=== PATIENT | male | born 1955 | race Caucasian/White ===

== ENCOUNTER → 2020-03-12 11:09 | Outpatient (CLI) | payer OTHER, SELFPAY ==
[2020-03-12 11:44] LABS: COVID19 -Nasal RAPID Negative (Negative)
== END ==
PROVIDERS: Visit Provider Physician Assistant
DX: Z20.822 Contact with and (suspected) exposure to COVID-19 (principal)
CPT/HCPCS: 87635; C9803

== ENCOUNTER → 2020-06-03 13:21 | Outpatient (CLI) | payer MEDICARE, SELFPAY ==
[2020-06-03] MEDS: COVID-19 VACC, Ad26(JANSSEN)/PF 0.5 ML IM (13:27)
== END ==
PROVIDERS: Visit Provider Internal Medicine
DX: Z23 Encounter for immunization (principal)
CPT/HCPCS: 0031A; 91303

== ENCOUNTER → 2020-07-08 10:33 | Outpatient (CLI) | payer OTHER, SELFPAY ==
--- NOTE | 2020-07-08 | DI.RAD.S_ITS ---
PROCEDURE: XR LUMBAR SPINE 2-3V INDICATIONS: Spinal stenosis, lumbar region with neurogenic claudication TECHNIQUE: 3 views of the lumbar spine were acquired. COMPARISON: Outside Facility, RG, XR L-SPINE 4-6V, 07/17/2016, 8:54. FINDINGS: Bones: 5 [id number] vertebrae are present. There is normal bony alignment. No vertebral body compression fractures. No suspicious bony lesions. Note is made of a minimal degree of degenerative disc height reduction along the upper and middle thirds of the lumbosacral spine but at L4-5 there is moderately severe such change and also facet osteoarthritis that is near severe. Anterolisthesis grade 2 is present of L5 on S1, but definite plain film evidence of pars interarticularis defects bilaterally at L4 a is not found. Ligamentous laxity may explain the appearance. Soft tissues: Overlying bowel gas pattern is normal. No suspicious soft tissue calcifications. IMPRESSION: Prominent disc height reduction and facet osteoarthritis at L4-L5 allowing grade 2 anterolisthesis of L4 on L5. Spinal and foraminal stenosis at this level likely is present as a result. There may be spinal and foraminal stenosis also given the degree of degeneration at L5-S1. No compression fracture found. The degree of degeneration at L4-L5 has mildly worsened from the comparison study from June of 2016. Dictated by: Rogerio Fermin M.D. on 07/08/2020 at 10:57 Approved by: Rogerio Fermin M.D. on 07/08/2020 at 11:00
== END ==
PROVIDERS: PCP Family Medicine; Referring Provider Family Medicine; Visit Provider Family Medicine
DX: M48.062 Spinal stenosis, lumbar region with neurogenic claudication (principal); M47.816 Spondylosis without myelopathy or radiculopathy, lumbar region; M43.16 Spondylolisthesis, lumbar region
CPT/HCPCS: 72100

== ENCOUNTER → 2020-10-10 07:44 | Outpatient (CLI) | payer OTHER, SELFPAY ==
[2020-10-10 12:07] LABS: COVID19 -Nasal RAPID Negative (Negative)
== END ==
PROVIDERS: PCP Family Medicine; Visit Provider Physical Medicine & Rehabilitation
DX: Z20.822 Contact with and (suspected) exposure to COVID-19 (principal)
CPT/HCPCS: 87635; C9803

== ENCOUNTER 2020-10-11 08:00 | Outpatient (CLI) | payer OTHER, SELFPAY ==
[2020-10-11] VITALS (8 sets, daily range): BP systolic 130–166; BP diastolic 60–77; PULSE 58–80; RESP 12–20; TEMP 36.6; O2SAT 95–100
--- NOTE | 2020-10-11 08:03 | DI.RAD.S_ITS ---
PROCEDURE: PAIN L INTERLAMINAR/CAUDAL INJ INDICATIONS: SPONDYLOSIS COMPARISON: [facility], CR, XR LUMBAR SPINE 2-3V, 07/08/2020, 10:42. FINDINGS: Fluoroscopic spot filming was performed to verify placement of a spinal needle at the L4-L5 level, as labeled on the films. Appropriate location of the needle tip was confirmed by injection of iodinated contrast. IMPRESSION: Intraprocedural examination within normal limits. Dictated by: Wilmar Gage M.D. on 10/11/2020 at 8:38 Approved by: Wilmar Gage M.D. on 10/11/2020 at 8:38
[2020-10-11] MEDS: SODIUM CHLORIDE 0.9% 250 ML IV (08:50)
[2020-10-11] MEDS: fentaNYL 100 MCG/2 ML INJ 50 MCG IV (09:00)
[2020-10-11] MEDS: MIDAZOLAM 5 MG/5 ML VIAL IV (09:00)
--- NOTE | 2020-10-11 09:01 | PC.NURSE ---
After placement of IV to the RH, pt became diaphoretic with some blurring vision and nauseated. Bolus of 250ml was started and pt was placed in a modified trendelenburg postion. HR was noted in the low 50's and BP was 88/52, sats were 99 on RA. Cool cloth was also applied. WESLEY Keller in procedure room arrived with first pt and then went to notify Dr Foire. Pt BP returned to baseline, 132/88 and it was determined by Dr. Fiore that pt would proceed as planned for procedure. Pt was escorted to procedure room via by Reema Brooks.
[2020-10-11] MEDS: IOPAMIDOL 15 ML VIAL 3 ML INJ (09:02)
[2020-10-11] MEDS: DEXAMETHASONE 10 MG/ML VIAL 20 MG INJ (09:02)
[2020-10-11] MEDS: BETAMETHASONE 30 MG/5 ML MDV 6 MG INJ (09:02)
[2020-10-11] MEDS: BUPIVACAINE 0.25% (PF) VIAL 2 ML INJ (09:02)
--- NOTE | 2020-10-11 09:11 | P.PCN_ITS ---
Date/Time/Diagnoses Date of procedure: 10/11/20 Time of procedure: 09:11 Pre-procedure diagnosis: 1. HNP WITH RADICULAR FEATURES, 2. MULTILEVEL CENTRAL STENOSIS, Post-procedure diagnosis: same Procedure Notes Procedure: 1. FLUOROSCOPICALLY GUIDED CONTRAST CONTROLLED INTERLAMINAR EPIDURAL STEROID INJECTION -L4/5 Indications: [facility] is referred by Dr. Golden for treatment of Bilateral Foraminal Stenosis R>L LE symptoms. Physician: Cristopher Fiore Total Fluoroscopy time (seconds): 7 Total sedation minutes: 8 Complications: none Procedure in detail & Post-procedure care: FINDINGS Multilevel Central Spinal Stenosis with Nerve Root Compression DESCRIPTION OF PROCEDURE Fluoroscopically guided, contrast-controlled L4/5 translaminar epidural steroid injection. Following review of allergy and review of potential side effects and complications, including, but not necessarily limited to, infection, allergic reaction, local tissue breakdown, temporary as well as permanent nerve injury, paralysis, stroke and possible , the patient indicated that the patient understood and agreed to proceed. An informed consent document was signed by the patient, witnessed by a nurse, and placed in the patient's chart. Additionally, other treatment options including modalities, medications, and physical therapy were reviewed with the patient. After review of previous anaesthesic history and IV conscious sedation the patient was deemed safe to proceed with today?s procedure with IV conscious sedation as ASA class II designation. Safety time-out was performed to confirm patient ID, procedure to be performed and site of procedure. IV sedation was accomplished with a combination of 2mg of Versed and 50mcg of Fentanyl was administered by the RN after DO order, titrated to patient comfort during the course of the procedure while the patient remained responsive to all verbal commands In the prone position, following sterile prep and drape of the lumbar region, the L4/5 translaminar space was identified fluoroscopically. The skin was anesthetized via a 25-gauge, 1.5inch needle with 1% lidocaine solution. At this point, a 22-gauge short bevel spinal needle was atraumatically introduced and advanced under fluoroscopic guidance into the region of the L4/5 translaminar space. Depth was confirmed on lateral view. Radiological data, including multiple fluoroscopic views of the lumbar spine, reveal a spinal needle at the L4/5 translaminar space. Lateral views then show placement of the needle in the epidural space. Subsequent views show contrast material flowing superiorly and inferiorly in the epidural space. No vascular or intrathecal uptake is observed. At this point, using loss of resistance technique with saline and air, the epidural space was entered. This was confirmed following negative aspiration with injection of approximately 1.5cc of Isovue 200, showing excellent epidural flow without vascular or intrathecal uptake. At this point, 1cc of 1% lidocaine solution combined with 3cc or 20mg of dexamethasone and 6mg betamethasone was injected without incident. The patient tolerated the procedure well without signs or symptoms of complications prior to transfer to the recovery area continued monitoring without incident. The patient was then transferred to the recovery area where they were observed for an appropriate period of time after the injection. The patient reported a VAS score of 6 prior to the procedure and a post- procedure VAS of 0. POST OP INSTRUCTIONS The patient was provided a Pain Log to continue to record their response to the target-specific procedure prior to follow-up visit with their referring physician. Additionally, specific post-injection care instructions and a contact number to our office were provided if concerns arise regarding possible complications associated with the procedure are suspected.
== END 2020-10-11 09:48 | disposition home or self-care (01) ==
LOC: RAD 08:02
PROVIDERS: PCP Family Medicine; Referring Provider Physical Medicine & Rehabilitation; Visit Provider Physical Medicine & Rehabilitation
DX: M51.16 Intervertebral disc disorders with radiculopathy, lumbar region (principal); M48.061 Spinal stenosis, lumbar region without neurogenic claudication
CPT/HCPCS: 62323; J0702; J1100; J2250; J3010

== ENCOUNTER → 2020-11-11 11:14 | Outpatient (CLI) | payer OTHER, SELFPAY ==
[2020-11-11 13:38] LABS: COVID19 -Nasal RAPID Negative (Negative)
== END ==
PROVIDERS: PCP Family Medicine; Referring Provider Nurse Practitioner; Visit Provider Nurse Practitioner
DX: Z20.822 Contact with and (suspected) exposure to COVID-19 (principal); J02.9 Acute pharyngitis, unspecified
CPT/HCPCS: 87070; 87635

== ENCOUNTER → 2021-05-22 10:54 | Outpatient (CLI) | payer OTHER, SELFPAY ==
[2021-05-22 13:46] LABS: COVID19 -Nasal RAPID Negative (Negative)
== END ==
PROVIDERS: PCP Family Medicine; Visit Provider Physical Medicine & Rehabilitation
DX: Z20.822 Contact with and (suspected) exposure to COVID-19 (principal)
CPT/HCPCS: 87635; C9803

== ENCOUNTER 2021-05-23 09:37 | Outpatient (CLI) | payer OTHER, SELFPAY ==
[2021-05-23] VITALS (8 sets, daily range): BP systolic 126–146; BP diastolic 68–80; PULSE 77–97; RESP 14–18; TEMP 36.7; O2SAT 96–98
--- NOTE | 2021-05-23 09:38 | DI.RAD.S_ITS ---
PROCEDURE: PAIN L/S FACET INJ/BLK 1ST JUSTO COMPARISON: None. INDICATIONS: SPONDYLOSIS FINDINGS: Access needle tips localized to the bilateral L4-L5 and L5-S1 facet joints. Injection of a small amount of contrast material through the access needles confirms position of the dual tips in the facet joints. IMPRESSION: Access needles in the bilateral L4-L5 and L5-S1 facet joints for facet joint injection. Dictated by: Cass Tyler MD, PhD on 05/23/2021 at 10:56 Approved by: Cass Tyler MD, PhD on 05/23/2021 at 10:57
[2021-05-23] MEDS: IOPAMIDOL 15 ML VIAL 3 ML INJ (10:30)
[2021-05-23] MEDS: LIDOCAINE 1% 20 ML (10:30)
[2021-05-23] MEDS: BETAMETHASONE 30 MG/5 ML MDV 12 MG INJ (10:31)
[2021-05-23] MEDS: MIDAZOLAM 5 MG/5 ML VIAL IV (10:31)
[2021-05-23] MEDS: BUPIVACAINE 0.5% (PF) VIAL 2 ML INJ (10:31)
--- NOTE | 2021-05-23 10:41 | P.PCN_ITS ---
Date/Time/Diagnoses Date of procedure: 05/23/21 Time of procedure: 10:41 Pre-procedure diagnosis: 1. FACET ARTHROPATHY 2. AXIAL LBP 3. MULTILEVEL DDD Post-procedure diagnosis: same Procedure Notes Procedure: 1. FLUOROSCOPICALLY GUIDED CONTRAST CONTROLLED FACET JOINT INJECTIONS BILATERAL L4/5, L5/S1 Indications: [facility] is referred by Dr. Golden for treatment of Axial LBP Physician: Cristopher Fiore Total Fluoroscopy time (seconds): 14 Total sedation minutes: 12 Complications: none Procedure in detail & Post-procedure care: FINDINGS Multilevel Facet Arthropathy with Clinically significant axial LBP DESCRIPTION OF PROCEDURE Fluoroscopically guided, contrast-controlled bilateral L4/5, L5/S1 facet joint injections. Following review of allergy and review of potential side effects and complications, including, but not necessarily limited to, infection, allergic reaction, local tissue breakdown, stroke, temporary or permanent nerve injury, paralysis, and possible , the patient indicated that the patient understood and agreed to proceed. An informed consent document was signed by the patient, witnessed by a nurse, and placed in the patient's chart. Additionally, other treatment options including medications, modalities, and physical therapy were reviewed with the patient. After review of previous anaesthesic history and IV conscious sedation the patient was deemed safe to proceed with today?s procedure with IV conscious sedation as ASA class II designation. Safety time-out was performed to confirm patient ID, procedure to be performed and site of procedure. IV sedation was accomplished with a combination of 1mg of Versed was administered by the RN after DO order, titrated to patient comfort during the course of the procedure while the patient remained responsive to all verbal commands In the prone position, following sterile prep and drape of the lumbar region, the posterior aspect of the L4/5, L5/S1 facet joints were identified fluoroscopically. The skin was anesthetized via a 25-gauge 1.5inch needle with 1% lidocaine solution into the corresponding facet joints. At this point, a 22- gauge 3.5-inch spinal needle was atraumatically introduced and advanced under fluoroscopic guidance into the corresponding facet joints. Following negative aspiration, injections of approximately 0.2cc of Isovue 200 confirmed interarticular placement without vascular uptake. The identical procedure was then performed at the L4/5, L5/S1 facet joints on the left. Radiological data, including multiple fluoroscopic views of the lumbosacral spine, reveal a spinal needle at the L4/5, L5/S1 facet joints bilaterally. Subsequent views show flow of contrast material both superiorly and inferiorly within the joint space without vascular or intrathecal uptake. At this point, a total of 0.5cc including a mixture of 0.25cc Marcaine and 0.25cc betamethasone was injected without complication into each of the corresponding facet joints. The patient tolerated the procedure well without signs or symptoms of complications prior to transfer to the recovery area continued monitoring without incident. The patient was then transferred to the recovery area where they were observed for an appropriate period of time after the injection. The patient reported a VAS score of 7 prior to the procedure and a post- procedure VAS of 0. POST OP INSTRUCTIONS The patient was provided a Pain Log to continue to record their response to the target-specific procedure prior to follow-up visit with their referring physician. Additionally, specific post-injection care instructions and a contact number to our office were provided if concerns arise regarding possible complications associated with the procedure are suspected.
== END 2021-05-23 11:04 | disposition home or self-care (01) ==
PROVIDERS: PCP Family Medicine; Referring Provider Physical Medicine & Rehabilitation; Visit Provider Physical Medicine & Rehabilitation
DX: M47.816 Spondylosis without myelopathy or radiculopathy, lumbar region (principal); M47.817 Spondylosis without myelopathy or radiculopathy, lumbosacral region; M51.36 Other intervertebral disc degeneration, lumbar region; M51.37 Other intervertebral disc degeneration, lumbosacral region
CPT/HCPCS: 64493; 64494; 99152; J0702; J2250

== ENCOUNTER → 2021-08-11 11:24 | Outpatient (CLI) | payer OTHER, SELFPAY ==
--- NOTE | 2021-08-11 | DI.RAD.S_ITS ---
PROCEDURE: XR SHOULDER RT MIN 2V INDICATIONS: bilat shoulder pain TECHNIQUE: 3 views of the shoulder were acquired. COMPARISON: None. FINDINGS: Bones: No fractures or dislocations. No suspicious bony lesions. Visualized ribs appear intact. Mild joint narrowing with periarticular osteophyte formation of the acromioclavicular and glenohumeral joint. Soft tissues: No suspicious soft tissue calcifications. IMPRESSION: Mild acromioclavicular and glenohumeral joint degeneration. Dictated by: Pablo Gregorio [facility] Interpreted: Isreal Mcpherson MD on 08/11/2021 at 11:48 Transcribed by: MAHAMED on 08/11/2021 at 11:48 Approved by: Isrela Mcpherson M.D. on 08/11/2021 at 14:43
--- NOTE | 2021-08-11 | DI.RAD.S_ITS ---
PROCEDURE: XR SHOULDER LT MIN 2V INDICATIONS: bilat shoulder pain TECHNIQUE: 3 views of the shoulder were acquired. COMPARISON: None. FINDINGS: Bones: No fractures or dislocations. No suspicious bony lesions. Visualized ribs appear intact. Mild joint narrowing with periarticular osteophyte formation the acromioclavicular and glenohumeral joint. Soft tissues: Possible rotator cuff calcific tendinopathy. IMPRESSION: 1. Mild acromioclavicular and glenohumeral joint degeneration. 2. Possible rotator cuff calcific tendinopathy. Dictated by: Pablo Gregorio [facility] Interpreted: Isreal Mcpherson MD on 08/11/2021 at 11:47 Transcribed by: MAHAMED on 08/11/2021 at 11:48 Approved by: Isreal Mcpherson M.D. on 08/11/2021 at 14:42
== END ==
PROVIDERS: PCP Family Medicine; Referring Provider Family Medicine; Visit Provider Family Medicine
DX: M19.011 Primary osteoarthritis, right shoulder (principal); M19.012 Primary osteoarthritis, left shoulder; M25.511 Pain in right shoulder; M25.512 Pain in left shoulder
CPT/HCPCS: 73030

== ENCOUNTER → 2023-12-30 07:59 | Outpatient (CLI) | payer OTHER, SELFPAY ==
--- NOTE | 2023-12-30 | DI.MRI.S_ITS ---
PROCEDURE: MR LUMBAR SPINE WO CON INDICATIONS: LUMBAR FORAMINAL STENOSIS TECHNIQUE: Noncontrast sagittal T1 spin echo and T2 fast echo, sagittal STIR, axial T1 and T2 fast spin echo through the lumbar spine. Axial and oblique coronal T1 spin echo and STIR through the sacrum. In cases with scoliosis, additional coronal T2 fast spin echo may be performed. COMPARISON: None. FINDINGS: Alignment and Curvature: Degenerative grade 1 anterior spondylolisthesis L4-5 Bone Marrow: Marrow is of normal overall signal. No acute vertebral body compression fractures. No sacral fractures. Spinal Cord: Conus medullaris terminates at the L1 level. Visualized cord demonstrates normal signal and size. Paraspinous Soft Tissues: No paravertebral masses. T12-L1: Normal appearance. L1-L2: Normal appearance. L2-L3: Normal appearance. L3-L4: Disc bulge and arthropathy. Moderate central stenosis. Moderate bilateral foraminal stenosis L4-L5: Disc bulge and arthropathy with ligamentum flavum laxity. Severe central stenosis. Severe bilateral foraminal stenosis. L5-S1: Disc bulge and arthropathy. Left subarticular disc protrusion/extrusion with superior migration mildly effaces the left lateral recess. Sub ligamentous disc fragment measures 9 mm IMPRESSION: Multilevel degenerative disc disease and arthropathy results in varying degrees of central and foraminal stenosis including severe central and bilateral foraminal stenosis at L4-5 as well as left subarticular disc protrusion with superior migration L5-S1 Approved by: Florentin Royal M.D. on 12/30/2023 at 14:58
--- NOTE | 2023-12-30 08:04 | DI.RAD.S_ITS ---
PROCEDURE: XR KNEE RT 3V INDICATIONS: right knee pain TECHNIQUE: Single frontal view including bilateral knees and a lateral and sunrise views of the right knee is provided. Total of three views of the right knee and one view of the left knee. COMPARISON: X-ray left knee dated today 12/30/2023. FINDINGS: Bones: Frontal views of both knees show severe DJD especially in the medial compartments. No acute fracture or subluxation seen. Soft tissues: Small suprapatellar right knee joint effusion IMPRESSION: 1.Tricompartmental DJD especially severe in the right and left knee medial compartments 2. Small suprapatellar right joint effusion Dictated by: Casey Lin M.D. on 12/30/2023 at 9:11 Approved by: Casey Lin M.D. on 12/30/2023 at 9:14
--- NOTE | 2023-12-30 08:04 | DI.RAD.S_ITS ---
PROCEDURE: XR KNEE LT 1TO2V INDICATIONS: right knee pain TECHNIQUE: 2 views of the knee were acquired including sunrise and lateral views. COMPARISON: None. FINDINGS: Bones: No fracture or subluxation identified on sunrise and lateral views. No frontal views provided Soft tissues: Small suprapatellar joint effusion. IMPRESSION: No frontal view of the knee provided, somewhat limiting study Small suprapatellar joint effusion noted Dictated by: Casey Lin M.D. on 12/30/2023 at 9:09 Approved by: Casey Lin M.D. on 12/30/2023 at 9:11
== END ==
PROVIDERS: Referring Provider Acupuncturist; Visit Provider Acupuncturist
DX: M17.0 Bilateral primary osteoarthritis of knee (principal); M25.461 Effusion, right knee; M25.462 Effusion, left knee; M25.561 Pain in right knee; M48.061 Spinal stenosis, lumbar region without neurogenic claudication; M51.369 Other intervertebral disc degeneration, lumbar region without mention of lumbar back pain or lower extremity pain; M51.379 Other intervertebral disc degeneration, lumbosacral region without mention of lumbar back pain or lower extremity pain; M47.816 Spondylosis without myelopathy or radiculopathy, lumbar region; M47.817 Spondylosis without myelopathy or radiculopathy, lumbosacral region; M51.27 Other intervertebral disc displacement, lumbosacral region
CPT/HCPCS: 72148; 73560; 73562

== ENCOUNTER 2024-11-03 09:47 | Emergency (ER) | payer MEDICARE, SELFPAY ==
--- NOTE | 2024-11-03 09:59 | ED.UPPEXIN ---
HPI - Extremity Injury (Upper) General Chief Complaint: Extremity Injury, Upper Stated Complaint: fell wk ago upper left shoulder pain near neck Time Seen by Provider: 11/03/24 09:59 History of Present Illness HPI narrative: Patient is a 68-year-old male with a past medical history of hypertension comes into the ED from home for evaluation of left upper shoulder he states that he had a fall approximately 2 week ago. He is not on any blood thinners, denies any headache visual disturbances chest pain shortness breath fever chills nausea vomiting abdominal pain or any other GI/ symptoms at this time. He states that he is here just to make sure that there is nothing broken. He states he already takes Percocets and muscle relaxers for his history of low back pain. Related Data Home Medications ?Medication ?Instructions ?Recorded ?Confirmed losartan 100 mg tablet 100 mg PO DAILY 08/24/20 04/17/21 metoprolol tartrate 50 mg tablet 50 mg PO DAILY 08/24/20 04/17/21 oxycodone-acetaminophen 5 mg-325 1 tab PO Q8H PRN 08/24/20 04/17/21 mg tablet (Percocet) Previous Rx's ?Medication ?Instructions ?Recorded celecoxib 200 mg capsule (Celebrex) 200 mg PO DAILY #30 caps 04/17/21 diazepam 10 mg tablet (Valium) 10 mg PO .COMPLEX PRN 1-2 prior to 05/15/21 MRI and for possible steroid flare #10 tabs Allergies Allergy/AdvReac Type Severity Reaction Status Date / Time lisinopril (From Zestril) Allergy Intermediate Cough Verified 04/17/21 08:32 Review of Systems Review of Systems Narrative: General: Denies fever, chills, weight loss HEENT: Denies headache, eye drainage, eye irritation, head trauma, sore throat, voice change Cardiovascular: Denies any chest pain, palpitations, tachycardia Respiratory: Denies any shortness of breath, cough, wheeze, stridor GI/: Denies any abdominal pain, nausea, vomiting, diarrhea, bright red blood per rectum, melanotic stools, urinary frequency, urinary retention, dysuria, hematuria MSK: Positive left shoulder pain Skin: Denies any rashes, lesions, discoloration Neuro: Denies any headache, lightheadedness, dizziness, fainting, weakness Psych: Denies SI/HI Patient History Medical History Facet arthropathy, lumbosacral Lumbar radiculopathy Spondylolisthesis at L4-L5 level Surgical History H/O knee surgery Family History Mother Hypertension Social History (Updated 08/23/20 @ 08:07 by Emma Dangelo LPN) marital status: number of children: 2 housing: other Smoking Status: Former smoker Exam Narrative Exam Narrative: General: Cooperative, well-developed, not in acute distress HEENT: Normocephalic, atraumatic, PERRLA, normal sclera, eyelids normal Neck: Active full range of motion, atraumatic Chest: Normal to inspection, negative crepitus, no overlying erythema ecchymosis Respiratory: Normal respiratory effort, not in acute respiratory distress, clear to auscultation bilaterally negative cough, wheeze, tachypnea, rhonchi, rales Cardiology: Regular rate rhythm negative gallop, murmur, rubs GI/: No tenderness to palpation, soft, non rigid, normal to inspection, exam deferred MSK: Full active range of motion in all 4 extremities, atraumatic, no tenderness to palpation of any bony prominences, patient does have tenderness to palpation within the belly of the SCM, he has no numbness weakness tingling to the lower extremities has no actual neck pain, he is neurovascularly intact to his bilateral upper and lower extremities Skin: No rashes or lesions noted Neuro: Alert awake oriented x3, moves all 4 extremities spontaneously, cranial nerves intact, able to answer all questions appropriately follows commands appropriately Psych: Cooperative, negative suicidal or homicidal ideations Initial Vital Signs Initial Vital Signs: Vital Signs Temperature 98.6 F 11/03/24 10:07 Pulse Rate 91 H 11/03/24 10:07 Respiratory Rate 15 11/03/24 10:07 Blood Pressure 169/76 H 11/03/24 10:07 Pulse Oximetry 99 11/03/24 10:07 Oxygen Delivery Method Room Air 11/03/24 10:07 Course Orders Ordered: ED Orders 11/03/24 10:02 XR shoulder LT 2+ views Stat Vital Signs Vital signs: Vital Signs - 8 hr 11/03/24 10:07 Temperature 98.6 F Pulse Rate 91 H Respiratory Rate 15 Blood Pressure 169/76 H Pulse Oximetry 99 Oxygen Delivery Method Room Air MDM - Extremity Injury (Upper) MDM Narrative Medical decision making narrative: Patient is a 68-year-old male with a past medical history of chronic low back pain hypertension presenting from home for evaluation of left upper shoulder pain, states he fell a proximally 2 weeks ago, states that he just came in to get an x-ray to make sure nothing is broken. He is neurovascularly intact to his upper extremities no numbness weakness tingling. He has no tenderness to palpation of his midline spine within the cervical or thoracic region he has reproducible tenderness to palpation within the belly of the SCM. This is more consistent with muscle spasm, he states he already takes Percocet and meloxicam for his low back, states he only came in to get imaging to make sure there is nothing broken. X-ray without any acute traumatic injury patient will be sent home with strict return precautions and informed to follow up with the primary care in outpatient setting. Did offer patient sling he politely declines informed him to follow up with his primary care doctor and Orthopedic surgery as needed Discharge Plan Departure Patient Disposition: Home Clinical Impression: Left shoulder strain Activity Restrictions/Additional Instructions: Please continue to take your muscle relaxers and your pain medication as needed Follow up with the primary care doctor as needed Please read the discharge instructions sheet carefully and bring all papers to all doctor follow-up visits, as it may contain information that your doctor may want to see. Disease processes change and evolve, if your symptoms worsen or if you develop any new symptoms that are concerning to you please return for evaluation. Your evaluation today does not show any evidence of any life-threatening/serious illnesses requiring admission to the hospital or surgery. Please follow-up with your doctor for re-evaluation in approximately 1 day. Seek immediate medical attention for any worrisome symptoms. *If you do not have a primary care provider please contact the [facility] Resource line at [phone]. They will ask some questions about your medical history and help get you set up with a doctor in the community. Prescriptions: No Action diazepam [Valium] 10 mg tablet 10 mg PO .COMPLEX MDD 3 tabs PRN (Reason: 1-2 prior to MRI and for possible steroid flare) Qty: 10 0RF Rx Instructions: 10 mg PO PRN; losartan 100 mg tablet 100 mg PO DAILY metoprolol tartrate 50 mg tablet 50 mg PO DAILY oxycodone-acetaminophen [Percocet] 5-325 mg tablet 1 tab PO Q8H PRN celecoxib [Celebrex] 200 mg capsule 200 mg PO DAILY Qty: 30 2RF Stand Alone Forms: Patient Portal/API
--- NOTE | 2024-11-03 10:02 | DI.RAD.S_ITS ---
PROCEDURE: XR SHOULDER LT MIN 2V INDICATIONS: pain to shoulder s/p fall x2 weeks ago TECHNIQUE: 3 views of the shoulder were acquired. COMPARISON: [facility], CR, XR SHOULDER RT MIN 2V, 08/11/2021, 11:17. FINDINGS: Bones: No fractures or dislocations. Moderate acromioclavicular joint osteoarthritic changes are seen. [id number] glenohumeral joint osteoarthritic changes also noted. No suspicious bony lesions. Visualized ribs appear intact. Soft tissues: No suspicious soft tissue calcifications. IMPRESSION: No acute lef shoulder fracture or dislocation. [id number] left shoulder joint osteoarthritis as above. t Dictated by: Mitchell Patel M.D. on 11/03/2024 at 10:51 Approved by: Mitchell Patel M.D. on 11/03/2024 at 10:52
[2024-11-03 10:07] VITALS: BP 169/76; PULSE 91; RESP 15; TEMP 37; O2SAT 99; BMI 31.1
[2024-11-03 11:03] VITALS: BP 133/70; PULSE 74; RESP 16; O2SAT 97
== END 2024-11-03 11:13 | disposition home or self-care (01) ==
PROVIDERS: Emergency Provider Student in an Organized Health Care Education/Training Program
DX: S46.812A Strain of other muscles, fascia and tendons at shoulder and upper arm level, left arm, initial encounter (principal); W19.XXXA Unspecified fall, initial encounter
CPT/HCPCS: 73030; 99281; 99283

== ENCOUNTER → 2024-12-14 08:06 | Outpatient (CLI) | payer MEDICARE, SELFPAY ==
--- NOTE | 2024-12-14 08:08 | DI.ECHO.S_ITS ---
[facility] : : [id number] : : [place] : : [id number] : : Phone: [phone] Echocardiogram Report + + :Name: DIPAK QUINONESJennie Crystal Study Date: 12/14/2024 Height: 68 in : :[facility] ReadingLocation: Weight: 205 lb : : Gender: Male BSA: 2.1 m2 : :: 1955 Age: 68 yrs BP: 173/79 mmHg: :Reason For Study: SHORTNESS OF BREATH : :Ordering Physician: NICK, : :CHRISTIANA Jin Performed By: Franklin Buenrostro : :Referring: CHRISTIANA SOFIA : + + Interpretation Summary The ejection fraction is estimated to be 55-60%. Grade II diastolic dysfunction with elevated left atrial pressure. The left atrium is mildly dilated. The right ventricle is normal in size and function. There is mild to moderate aortic regurgitation. There is mild tricuspid regurgitation. Pulmonary artery pressures cannot be estimated because of the lack of a measurable TR jet velocity but the IVC suggests a CVP of around 3 mmHg. The ascending aorta is mildly enlarged. Procedure: A two-dimensional transthoracic echocardiogram with color flow and Doppler was performed. The study quality was technically good. There is no prior echocardiogram noted for this patient. The patient was in normal sinus rhythm during the exam. Left Ventricle: The left ventricle is normal in size. Left ventricular wall thickness is mildly increased. There is no ventricular septal defect visualized. The ejection fraction is estimated to be 55-60%. There are no focal wall motion abnormalities. Grade II diastolic dysfunction with elevated left atrial pressure. Right Ventricle: The right ventricle is normal in size and function. Atria: The left atrium is mildly dilated. Right atrial size is normal. There is no Doppler evidence for an interatrial shunt. Mitral Valve: There is mild mitral annular calcification. The mitral valve leaflets appear mildly thickened. There is trace mitral regurgitation. Aortic Valve: The aortic valve is trileaflet. The aortic valve opens well. There is no aortic valve stenosis. There is mild to moderate aortic regurgitation. Tricuspid Valve: The tricuspid valve leaflets are thin and pliable. There is mild tricuspid regurgitation. Pulmonary artery pressures cannot be estimated because of the lack of a measurable TR jet velocity but the IVC suggests a CVP of around 3 mmHg. Pulmonic Valve: The pulmonic valve is not well seen, but is grossly normal. There is no pulmonic valvular regurgitation. Great Vessels: The aortic root is mildly dilated. The ascending aorta is mildly enlarged. The pulmonary artery is not well visualized, but is probably normal size. The IVC is of normal diameter and collapses greater than 50% with a sniff. This suggests a low right atrial pressure of 3 mm Hg. Pericardium/ Pleura There is no pericardial effusion. There is no pleural effusion. MMode/2D Measurements & Calculations LVIDd: 5.4 cm LVOT diam: 2.4 cm LVIDs: 3.9 cm Ao root diam: 3.9 cm FS: 26.8 % asc Aorta Diam: 4.0 cm EPSS: 1.1 cm IVSd: 1.2 cm LVPWd: 1.0 cm LV albright. diameter/BSA (cm/m^2): 2.6 LV sys. diameter/BSA (cm/m^2): 1.9 LA A2 area: 20.3 cm2 RA long axis: 5.5 cm LA A4 area: 23.7 cm2 RA area: 16.1 cm2 LA length (vol): 5.6 cm RA vol: 39.8 ml LA vol: 73.0 ml RA : 19.3 ml/m2 LA vol index: 35.4 ml/m2 IVC diam: 1.00 cm RVD1 (basal): 3.7 cm RVD2 (mid): 3.0 cm TAPSE: 2.5 cm Doppler Measurements & Calculations Ao V2 max: 192.2 cm/sec LVOT Max Lonnie: 134.1 cm/sec Ao V2 mean: 129.9 cm/sec LV V1 max P.2 mmHg Ao max P.8 mmHg LV V1 VTI: 36.5 cm Ao mean P.5 mmHg ODILIA(I,D): 3.8 cm2 Ao V2 VTI: 42.0 cm ODILIA(V,D): 3.1 cm2 sev ratio: 0.87 ODILIA indexed to BSA (cm^2/m^2): 1.9 MV E max lonnie: 112.1 cm/sec TR max lonnie: 281.5 cm/sec MV A max lonnie: 101.8 cm/sec TR max P.7 mmHg MV E/A: 1.1 PA V2 max: 118.3 cm/sec Med Peak E' Lonnie: 6.6 cm/sec PA V2 mean: 84.0 cm/sec E/E' med: 17.1 PA mean P.1 mmHg Lat Peak E' Lonnie: 6.7 cm/sec PA pr(Accel): 46.5 mmHg E/E' lat: 16.7 E/e' average: 16.9 MV dec time: 0.25 sec SV(LVOT): 161.3 ml Reading Physician:06:17 PM
== END ==
LOC: ECHO 08:08
PROVIDERS: PCP Physician Assistant; Referring Provider Internal Medicine Cardiovascular Disease; Visit Provider Internal Medicine Cardiovascular Disease
DX: I08.3 Combined rheumatic disorders of mitral, aortic and tricuspid valves (principal); R06.02 Shortness of breath; I77.810 Thoracic aortic ectasia
CPT/HCPCS: 93306